=== PATIENT | female | born 1965 | race African-American/Black ===

== ENCOUNTER 2016-08-21 14:52 | Outpatient (CLI) | payer OTHER ==
--- NOTE | 2016-08-22 08:34 | Magnetic Resonance Report ---
MR CERVICAL SPINE WITHOUT CONTRAST HISTORY: Spondylosis, neck pain. TECHNIQUE: Axial T2. Sagittal T1, T2 and STIR. COMPARISON: None. FINDINGS: The cervical spinal cord is normal size and signal intensity throughout. No abnormal intramedullary signal. There is normal height and alignment of the cervical vertebral bodies. No bone marrow edema, fracture or bone lesion. No subluxation. There is mild diffuse disc desiccation and narrowing. The facet joints are unremarkable. C2-3: No abnormality. C3-4: A mild posterior bulging disc lateralizes to the left side. No mass effect or neural foraminal narrowing. C4-5: A moderate sized broad based left paracentral disc protrusion is identified which exerts mild mass effect on the left anterior spinal cord. Left neural foraminal narrowing is estimated at 25-50%. The right neural foramen is normal. C5-6: No significant abnormality. C6-7: A mild diffuse posterior bulging disc and moderate bilateral uncovertebral spurring is identified. Left neural foraminal narrowing is estimated at 50%. C7-T1: No abnormality. IMPRESSION: Mild cervical spondylosis as described. C4-5 appears to be the most affected level. Please see above.
== END 2016-08-21 14:53 | disposition home or self-care (01) ==
LOC: MRI 14:52
PROVIDERS: ATTEND Physical Medicine & Rehabilitation
DX: M50.221 Other cervical disc displacement at C4-C5 level (principal); M47.892 Other spondylosis, cervical region
CPT/HCPCS: 72141

== ENCOUNTER 2017-12-26 18:02 | Emergency (ER) | payer OTHER ==
[2017-12-26] MEDS ORDERED: NACL 0.9% 1000 ML 1,000 ML IV ONE (20:16)
[2017-12-26 20:51] LABS: Basophils % (Auto) 0.5 % (0.0-1.8); Eosinophils % (Auto) 0.3 % (0.0-4.3); Hematocrit 42.1 % (30.3-42.9); Hemoglobin 13.6 gm/dl (10.1-14.3); Lymphocytes # (Auto) 1.3 K/mm3 (1.2-5.4); Lymphocytes % (Auto) 11.8 % (13.4-35.0); Mean Corpuscular HGB Conc 32 % (30-34); Mean Corpuscular Volume 79 fl (79-97); Monocytes # (Auto) 0.5 K/mm3 (0.0-0.8); Monocytes % (Auto) 4.2 % (0.0-7.3); Platelet Count 264 K/mm3 (140-440); Red Blood Count 5.34 M/mm3 (3.65-5.03); Red Cell Distribution Width 14.3 % (13.2-15.2)
--- NOTE | 2017-12-26 20:51 | Emergency Department Report ---
ED Extremity Problem HPI - General Chief complaint: Extremity Problem,Nontraumatic Stated complaint: LEG CRAMP Time Seen by Provider: 12/26/17 20:03 Source: patient Mode of arrival: Stretcher Limitations: Physical Limitation - History of Present Illness Initial comments: 52-year-old female presents to the ED with complaints of left leg cramps. Patient states she suffered a fall approximately 4 years ago where she fell onto her left hip. States ever since then she has been having cramping and her left leg. However, states episodes have become more frequent. She has seen primary care physician regarding this issue and was given medications for it. Patient does not know the name of the medications. Patient states when the episodes happen, her foot turns inward, and the pain lasts for approximately 30 minutes to an hour. Daughter has witnessed these episodes multiple times. States does not appear to be a seizure, no tonic-clonic activity, pt awake throughout. Patient states occasionally she will get cramps in the right leg, however, they predominantly occur in the left leg. Patient states she drinks lots of water throughout the day. She denies nausea vomiting diarrhea. Denies numbness, weakness, swelling, calf tenderness in the left leg as well. Pt was given 100 mcg Fentanyl by EMS. No pain or cramping at this time. PCP at [facility]. States he is arranging for her to see a neurologist. Complaint: other (leg cramps) -: This evening Location: left, lower extremity History of Same: Yes (chronic) -: Yes myalgia Radiation: proximal, other (states starts in foot and radiates up to hip) Quality: other (cramping) Consistency: constant, now resolved Improves with: nothing Worsens with: nothing Associated Symptoms: denies: chest pain, shortness of breath - Related Data Previous Rx's Medication Instructions Recorded Last Taken Type ALBUTEROL Inhaler (OR & NICU) 2 puff IH QID PRN #1 inhalation 10/20/13 Unknown Rx [ProAir HFA Inhaler] Famotidine [Pepcid] 20 mg PO DAILY #30 tablet 10/20/13 Unknown Rx Sulfamethoxazole/Trimethoprim 1 each PO BID #14 tablet 10/20/13 Unknown Rx [Bactrim Ds] predniSONE [Deltasone] 40 mg PO QDAY #10 tab 10/20/13 Unknown Rx Methocarbamol [Robaxin TAB] 750 mg PO Q8H PRN #20 tablet 12/26/17 Unknown Rx Allergies Allergy/AdvReac Type Severity Reaction Status Date / Time No Known Allergies Allergy Unverified 06/02/13 17:43 ED Review of Systems ROS: Stated complaint: LEG CRAMP Other details as noted in HPI Comment: All other systems reviewed and negative Constitutional: fever Respiratory: denies: shortness of breath Cardiovascular: denies: chest pain Musculoskeletal: myalgia. denies: joint swelling Neurological: denies: weakness, numbness ED Past Medical Hx - Surgical History Additional Surgical History: ovarian cyst - Social History Smoking Status: Never Smoker Substance Use Type: None - Medications Home Medications: Home Medications Medication Instructions Recorded Confirmed Last Taken Type ALBUTEROL Inhaler (OR & NICU) 2 puff IH QID PRN #1 inhalation 10/20/13 Unknown Rx [ProAir HFA Inhaler] Famotidine [Pepcid] 20 mg PO DAILY #30 tablet 10/20/13 Unknown Rx Sulfamethoxazole/Trimethoprim 1 each PO BID #14 tablet 10/20/13 Unknown Rx [Bactrim Ds] predniSONE [Deltasone] 40 mg PO QDAY #10 tab 10/20/13 Unknown Rx Methocarbamol [Robaxin TAB] 750 mg PO Q8H PRN #20 tablet 12/26/17 Unknown Rx ED Physical Exam - General Limitations: No Limitations General appearance: alert, in no apparent distress - Head Head exam: Present: atraumatic, normocephalic - Eye Eye exam: Present: normal appearance - ENT ENT exam: Present: mucous membranes moist - Neck Neck exam: Present: normal inspection - Respiratory Respiratory exam: Present: normal lung sounds bilaterally. Absent: respiratory distress - Cardiovascular Cardiovascular Exam: Present: regular rate, normal rhythm - GI/Abdominal GI/Abdominal exam: Present: soft. Absent: tenderness - Extremities Exam Extremities exam: Present: normal inspection, full ROM, normal capillary refill , other (no leg swelling present; DP pulse normal). Absent: tenderness, joint swelling, calf tenderness - Neurological Exam Neurological exam: Present: alert, oriented X3. Absent: motor sensory deficit - Psychiatric Psychiatric exam: Present: normal affect, normal mood - Skin Skin exam: Present: warm, dry, intact, normal color ED Course Vital Signs 09/27/18 09/27/18 09/27/18 19:20 19:24 19:29 Temperature 97.6 F Pulse Rate 64 Respiratory 18 18 Rate Blood Pressure 124/79 O2 Sat by Pulse 98 99 Oximetry 12/26/17 12/26/17 12/26/17 19:30 19:45 20:00 Temperature Pulse Rate 62 58 L 60 Respiratory 14 11 L 17 Rate Blood Pressure 120/77 120/76 109/57 O2 Sat by Pulse 100 99 100 Oximetry 12/26/17 12/26/17 12/26/17 20:15 20:30 20:45 Temperature Pulse Rate 59 L 72 76 Respiratory 13 10 L 15 Rate Blood Pressure 109/57 118/80 125/74 O2 Sat by Pulse 98 100 100 Oximetry ED Medical Decision Making - Lab Data Result diagrams: 12/26/17 20:32 12/26/17 20:32 - Medical Decision Making 52-year-old female with leg cramping of left leg. These episodes have been ongoing for approx 4 yrs, but are becoming more frequent. Daughter showed me a picture of pt's leg during an episode. Appears to be consistent with a very strong muscle cramp. Low suspicion for seizure. Labs unremarkable. Pt given IV fluids here in ED. Pt in no distress, reports no pain at this time. Normal extremity exam, appears nml, sensation and strength intact. Advised f/u with PCP and neurologist. Will also provide names of rheumatologists for pt to follow up with. Will give prescription for muscle relaxer - Differential Diagnosis dehydration, electrolyte abnormality, seizure Critical care attestation.: If time is entered above; I have spent that time in minutes in the direct care of this critically ill patient, excluding procedure time. ED Disposition Clinical Impression: Muscle spasm of left lower extremity Disposition: - TO HOME OR SELFCARE Is pt being admited?: No Condition: Stable Instructions: Muscle Cramp (ED) Prescriptions: Methocarbamol [Robaxin TAB] 750 mg PO Q8H PRN #20 tablet PRN Reason: Muscle Spasm Referrals: ALESHIA CAREMD [Primary Care Provider] - 3-5 Days RAMÓN CHUA MD [Staff Physician] - 3-5 Days TERESA DESAI MD [Referring] - 3-5 Days JASWINDER ESTEVES MD [Staff Physician] - 3-5 Days PARIS KINGSLEY MD [Staff Physician] - 3-5 Days Time of Disposition: 22:02
[2017-12-26 20:54] LABS: Mean Corpuscular Hemoglobin 25 pg (28-32)
[2017-12-26 21:12] LABS: BUN/Creatinine Ratio 25; Blood Urea Nitrogen 15 mg/dL (7-17); Calcium 9.2 mg/dL (8.4-10.2); Hemolysis Index 6
[2017-12-26 22:23] VITALS: BP 110/80
== END 2017-12-26 22:22 | disposition home or self-care (01) ==
LOC: ED 18:02
DX: M79.605 Pain in left leg (principal)
CPT/HCPCS: 36415; 80048; 85025; 99284; J7030

== ENCOUNTER 2018-05-13 16:48 | Emergency (ER) | payer OTHER ==
[2018-05-13] MEDS ORDERED: SUBLIMAZE IV ONE ×2 (17:37→18:05)
[2018-05-13] MEDS ORDERED: ZOFRAN IV ONE (17:37)
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
[2018-05-13] MEDS ORDERED: SUBLIMAZE ONE (17:53)
[2018-05-13 18:29] LABS: Basophils % (Auto) 0.7 % (0.0-1.8); Eosinophils # (Auto) 0.1 K/mm3 (0.0-0.4); Eosinophils % (Auto) 1.7 % (0.0-4.3); Hematocrit 40.7 % (30.3-42.9); Hemoglobin 13.4 gm/dl (10.1-14.3); Lymphocytes # (Auto) 2.8 K/mm3 (1.2-5.4); Lymphocytes % (Auto) 47.3 % (13.4-35.0); Mean Corpuscular HGB Conc 33 % (30-34); Mean Corpuscular Volume 78 fl (79-97); Monocytes # (Auto) 0.3 K/mm3 (0.0-0.8); Monocytes % (Auto) 5.1 % (0.0-7.3); Platelet Count 262 K/mm3 (140-440); Red Blood Count 5.19 M/mm3 (3.65-5.03); Red Cell Distribution Width 14.1 % (13.2-15.2)
[2018-05-13 18:47] LABS: Alanine Aminotransferase 9 units/L (7-56); Albumin 3.9 g/dL (3.9-5); BUN/Creatinine Ratio 28; Blood Urea Nitrogen 17 mg/dL (7-17); Calcium 8.9 mg/dL (8.4-10.2); Hemolysis Index 31
[2018-05-13 18:49] LABS: Bilirubin,Direct < 0.2 mg/dL (0-0.2)
[2018-05-13 23:23] VITALS: BP 122/74
== END 2018-05-13 23:21 | disposition home or self-care (01) ==
LOC: ED 16:48
DX: R25.2 Cramp and spasm (principal); M79.605 Pain in left leg; M79.604 Pain in right leg; I10 Essential (primary) hypertension; F41.9 Anxiety disorder, unspecified
CPT/HCPCS: 36415; 80048; 80076; 85025; 96374; 96375; 99284; J2405; J3010

== ENCOUNTER 2018-06-05 15:21 | Outpatient (CLI) | payer OTHER ==
--- NOTE | 2018-06-05 19:52 | Magnetic Resonance Report ---
PROCEDURE: MR LUMBAR SPINE WO CON HISTORY: Radiculopathy FINDINGS: MRI of the lumbar spine was performed using sagittal T1, sagittal T2, sagittal inversion re covery, axial T1 and axial T2-weighted images.. The conus medullaris lies at the level T12-L1 and appears unremarkable. At T12-L1 there is mild loss of disc T2 signal intensity. There are no posterior disc abnormalities. At L1-L2 there is mild loss of disc T2 signal intensity. There are no posterior disc abnormalities. At L2-L3 there are endplate Schmorl's nodes. There are no posterior disc abnormalities. There is no e vidence of canal stenosis or nerve root impingement. At L3-L4 there is loss of disc T2 signal intensity. There is a posterior annular fissure. There is no evidence of canal stenosis or nerve root impingement. There is a small amount of subchondral endplat e edema at L3-L4. At L4-L5 there is loss of disc T2 signal intensity. There is a posterior fissure in the disc, sagitta l T2-weighted image 8. There is a minimal posterior disc bulge which does not result in canal stenosi s or significant neural foraminal narrowing. At L5-S1 there are no posterior disc abnormalities. There is no evidence of canal stenosis or nerve r oot impingement. IMPRESSION: Posterior annular fissures in the L3-L4 at L4-5 intervertebral discs No evidence of canal stenosis or nerve impingement. This document is electronically signed by Mike Cody MD., June 05 2018 07:50:20 PM ET
== END 2018-06-05 15:22 | disposition home or self-care (01) ==
LOC: MRI 15:21
PROVIDERS: ATTEND Psychiatry & Neurology Neurology
DX: M51.16 Intervertebral disc disorders with radiculopathy, lumbar region (principal); I10 Essential (primary) hypertension
CPT/HCPCS: 72148

== ENCOUNTER 2018-07-14 09:39 | Emergency (ER) | payer OTHER ==
[2018-07-14 10:28] LABS: Basophils % (Auto) 0.8 % (0.0-1.8); Eosinophils # (Auto) 0.1 K/mm3 (0.0-0.4); Eosinophils % (Auto) 1.9 % (0.0-4.3); Hematocrit 43.4 % (30.3-42.9); Hemoglobin 14.1 gm/dl (10.1-14.3); Lymphocytes # (Auto) 1.5 K/mm3 (1.2-5.4); Lymphocytes % (Auto) 35.2 % (13.4-35.0); Mean Corpuscular HGB Conc 32 % (30-34); Mean Corpuscular Volume 79 fl (79-97); Monocytes # (Auto) 0.3 K/mm3 (0.0-0.8); Monocytes % (Auto) 6.2 % (0.0-7.3); Platelet Count 243 K/mm3 (140-440); Red Blood Count 5.53 M/mm3 (3.65-5.03); Red Cell Distribution Width 14.1 % (13.2-15.2)
[2018-07-14 10:51] LABS: BUN/Creatinine Ratio 15; Blood Urea Nitrogen 9 mg/dL (7-17); Calcium 8.8 mg/dL (8.4-10.2); Hemolysis Index 9
[2018-07-15 18:43] VITALS: BP 140/86
== END 2018-07-14 10:56 | disposition left against medical advice (07) ==
LOC: ED 09:39
DX: M79.672 Pain in left foot (principal); Z53.21 Procedure and treatment not carried out due to patient leaving prior to being seen by health care provider
CPT/HCPCS: 36415; 80048; 85025

== ENCOUNTER 2019-10-05 10:36 | Emergency (ER) | payer SELFPAY ==
[2019-10-05 11:08] VITALS: BP 129/81
--- NOTE | 2019-10-05 11:50 | Event Note ---
ED Screening Note ED Screening Note: pt presents to the ED with dizziness that began four days ago states she is 63 years old states she has room spinning states that worse with head movements and laying flat no CP no SOB she has nausea and one episode of vomiting she is unsure if she had a syncopal episode 4 days ago This initial assessment/diagnostic orders/clinical plan/treatment(s) is/are subject to change based on patients health status, clinical progression and re- assessment by fellow clinical providers in the ED. Further treatment and workup at subsequent clinical providers discretion. Patient/guardian urged not to elope from the ED as their condition may be serious if not clinically assessed and managed. Initial orders include: labs, CT head, EKG, urine
--- NOTE | 2019-10-05 12:33 | Cat Scan Report ---
CT head without contrast INDICATION : dizziness. TECHNIQUE: Axial imaging performed from the skull apex through the skull base without the use of con trast. All CT scans at this location are performed using CT dose reduction for ALARA by means of aut omated exposure control. COMPARISON: CT head from 10/19/2013 FINDINGS: Parenchyma: No acute intracranial hemorrhage or parenchymal abnormality. Ventricles: Ventricles are normal in size and appear symmetric. Soft tissues: Soft tissues including the orbits appear normal. Bones: No acute osseous abnormality. Sinuses: Sinuses and mastoid air cells are clear. IMPRESSION: No acute abnormality. Signer Name: Phil Vincent MD Signed: 10/05/2019 12:29 PM Workstation Name: [id number]
[2019-10-05] MEDS ORDERED: MECLIZINE 25 MG TAB PO ONE (12:42)
[2019-10-05] MEDS ORDERED: SODIUM CHLORIDE 0.9% 1000 ML 1,000 ML IV ONE ×2 (12:42→14:37)
--- NOTE | 2019-10-05 13:26 | XRay Report ---
Cervical spine-4 views INDICATION: pain s/p fall. COMPARISON: None. IMPRESSION: Normal alignment. Moderate mid cervical discogenic DJD with mild facet arthropathy. No acute osseous or soft tissue abnormality. Signer Name: Phil Vincent MD Signed: 10/05/2019 1:21 PM Workstation Name: [id number]
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
[2019-10-05 13:30] LABS: Bilirubin,Urine NEG (Negative); Blood,Urine NEG (Negative); Color,Urine Yellow (Yellow); Mucus,Urine FEW /HPF; Protein,Urine <15 mg/dL mg/dL (Negative); Urobilinogen,Urine < 2.0 mg/dL (<2.0)
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
[2019-10-05 14:04] LABS: Basophils % (Auto) 0.7 % (0.0-1.8); Eosinophils % (Auto) 0.4 % (0.0-4.3); Hematocrit 38.2 % (30.3-42.9); Hemoglobin 12.5 gm/dl (10.1-14.3); Lymphocytes # (Auto) 1.3 K/mm3 (1.2-5.4); Lymphocytes % (Auto) 25.9 % (13.4-35.0); Mean Corpuscular HGB Conc 33 % (30-34); Mean Corpuscular Volume 78 fl (79-97); Monocytes # (Auto) 0.3 K/mm3 (0.0-0.8); Monocytes % (Auto) 5.2 % (0.0-7.3); Platelet Count 240 K/mm3 (140-440); Red Blood Count 4.92 M/mm3 (3.65-5.03); Red Cell Distribution Width 14.5 % (13.2-15.2)
[2019-10-05 14:14] LABS: INR 1.02 (0.87-1.13); Partial Thromboplastin Time 30.8 Sec. (24.2-36.6)
[2019-10-05 14:15] LABS: Alanine Aminotransferase 13 units/L (7-56); BUN/Creatinine Ratio 17; Blood Urea Nitrogen 12 mg/dL (7-17); Calcium 8.5 mg/dL (8.4-10.2)
[2019-10-05 14:16] LABS: Hemolysis Index 5
[2019-10-05] MEDS ORDERED: POTASSIUM CHLORIDE 10 MEQ 10 MEQ/100 ML BAG IV ONE (14:19)
[2019-10-05] MEDS ORDERED: POTASSIUM CHLORIDE ER 20 MEQ TAB PO ONE (14:19)
--- NOTE | 2019-10-05 14:35 | XRay Report ---
LUMBOSACRAL SPINE 2 VIEWS INDICATION: low back pain. COMPARISON: None. IMPRESSION: There is straightening of the normal lordosis. No significant discogenic DJD or facet a rthropathy. No acute osseous or soft tissue abnormality. Signer Name: Isaac Dempsey Jr, MD Signed: 10/05/2019 2:30 PM Workstation Name: [id number]
== END 2019-10-05 17:10 | disposition home or self-care (01) ==
LOC: ED 10:36
DX: S39.012A Strain of muscle, fascia and tendon of lower back, initial encounter (principal); E87.6 Hypokalemia; R42 Dizziness and giddiness; R55 Syncope and collapse; S60.222A Contusion of left hand, initial encounter; I10 Essential (primary) hypertension; W18.30XA Fall on same level, unspecified, initial encounter; Y93.89 Activity, other specified; Y92.89 Other specified places as the place of occurrence of the external cause; Y99.8 Other external cause status
CPT/HCPCS: 36415; 70450; 72040; 72100; 73130; 80053; 81001; 82962; 83735; 84132; 84484; 85025; 85610; 85730; 93005; 96361; 96365; 99285; J3480; J7030